=== PATIENT | male | born 1980 | race Caucasian/White ===

== ENCOUNTER 2018-09-27 19:54 | Emergency (ER) | payer OTHER ==
[~2018-09-27] VITALS: Ht 185.4 cm; Wt 72.6 kg
[~2018-09-27 19:54] MED LIST: ALBUTEROL2.5 MG/0.1; ALBUTEROL2.5 MG/31 INH; AMOXICILLIN 50500 M1 PO; CLARITIN10 MG PO; FLOMAX0.4 MG PO; GARAMYCIN5 M1 OP; HYDROCODONE-AC120 ML PO; IBUPROFEN 600600 M1 PO; IBUPROFEN 800800 M1 PO; KEFLEX500 MG PO; NOHOMEMEDICATIONS; NORCO 5-325 TA1 EACH PO; PENICILLIN VK500 MG PO; PERCOCET 5-3251 EACH PO; PHENERGAN 25 MG25 M1 PO; PREDNISONE 20 M20 M1 PO; PROAIR HFA8.5 GM; PROMS25 WY RECTAL; PROVENTIL HFA6.7 G1 INH; ZPAK PO
[2018-09-27] MEDS ORDERED: PREDNISONE 20 M20 MG PO (20:23)
[2018-09-27] MEDS ORDERED: VENTOLIN HFA 1818 GM INH (20:23)
[2018-09-27] MEDS ORDERED: ZPAK PO (20:23)
[2018-09-27 20:54] VITALS: BP 95/62
== END 2018-09-27 20:54 | disposition home or self-care (01) ==
LOC: ER 19:54
DX: J45.901 Unspecified asthma with (acute) exacerbation (principal); J06.9 Acute upper respiratory infection, unspecified; Z87.891 Personal history of nicotine dependence

== ENCOUNTER 2021-01-29 20:53 | Emergency (ER) | payer OTHER ==
[~2021-01-29] VITALS: Ht 185.4 cm; Wt 68.0 kg
[~2021-01-29 20:53] MED LIST changes: +PREDNISONE 20 M20 MG PO; +VENTOLIN HFA 1818 GM INH
[2021-01-29] MEDS ORDERED: CIPROFLOXIN HC2.5 M1 OPHTHALMIC (22:43)
[2021-01-29 22:50] VITALS: BP 110/80
== END 2021-01-29 22:50 | disposition home or self-care (01) ==
LOC: ER 20:53
DX: T15.81XA Foreign body in other and multiple parts of external eye, right eye, initial encounter (principal); F12.90 Cannabis use, unspecified, uncomplicated; Z79.899 Other long term (current) drug therapy; J45.909 Unspecified asthma, uncomplicated; Z98.890 Other specified postprocedural states; Y92.89 Other specified places as the place of occurrence of the external cause